=== PATIENT | female | born 1975 | race Caucasian/White ===

== ENCOUNTER 2018-08-25 11:09 | Emergency (ER) | payer MEDICAID ==
[2018-08-25 11:10] VITALS: BMI 33.1
[2018-08-25 11:20] VITALS: BP 115/80; PULSE 92; RESP 18; TEMP 97.9; O2SAT 99
--- NOTE | 2018-08-25 12:27 | RAD ---
Date of service: 08/25/2018 PROCEDURE: Radiographs of the Right Shoulder HISTORY: right shoulder injury, anterior tenderness COMPARISON: No prior. FINDINGS: BONES: No acute fracture JOINTS: Mild acromioclavicular joint degenerative change. SOFT TISSUES: Supraspinatus calcific tendonitis. OTHER FINDINGS: None. IMPRESSION: No demonstrated fracture or dislocation. Supraspinatus calcific tendonitis.
[2018-08-25] MEDS ORDERED: Lidocaine 5% Patch TD STA (12:46)
--- NOTE | 2018-08-25 13:06 | ED PDOC ---
Arrival/HPI - General Chief Complaint: Upper Extremity Problem/Injury Time Seen by Provider: 08/25/18 11:20 Historian: Patient - History of Present Illness Narrative History of Present Illness (Text): 08/25/18 22:37 43 y/o female with no significant PMH presents to the ED c/o right shoulder pain x 3 days. Patient was cleaning a closet in her home when she strained her shoulder, causing gradually worsening pain and stiffness to the right shoulder. Patient is now having difficulty moving the arm at the shoulder secondary to pain. Taking Alieve without relief. Denies numbness, paresthesias, weakness, chest pain, SOB, or any other associated symptoms. Past Medical History - Provider Review Nursing Documentation Reviewed: Yes - Cardiac Hx Cardiac Disorders: No Hx Hypertension: No - Psychiatric Hx Depression: No Hx Substance Use: No - Surgical History Hx Section: Yes - Anesthesia Hx Anesthesia: Yes Hx Anesthesia Reactions: No Family/Social History - Physician Review Nursing Documentation Reviewed: Yes Family/Social History: No Known Family HX Smoking Status: Never Smoked Hx Alcohol Use: Yes Frequency of alcohol use: Socially Hx Substance Use: No Allergies/Home Meds Allergies/Adverse Reactions: Allergies nuts Adverse Reaction (Mild, Uncoded 08/25/18 11:20) RASH Review of Systems - Physician Review All systems were reviewed & negative as marked: Yes - Review of Systems Constitutional: Normal. absent: Fevers Eyes: Normal. absent: Vision Changes ENT: Normal. absent: Sore Throat, Sinus Congestion Respiratory: Normal. absent: SOB, Cough Cardiovascular: Normal. absent: Chest Pain, Palpitations, Syncope Gastrointestinal: Normal. absent: Abdominal Pain, Nausea, Vomiting Genitourinary Female: Normal. absent: Dysuria, Frequency Musculoskeletal: Arthralgias. absent: Back Pain, Neck Pain Skin: Normal. absent: Rash, Skin Lesions Neurological: Normal. absent: Headache, Dizziness, Focal Weakness, Gait Changes, Disequilibrium Endocrine: Normal Hemo/Lymphatic: Normal Psychiatric: Normal Physical Exam Vital Signs Reviewed: Yes Vital Signs Temp Pulse Resp BP Pulse Ox 08/25/18 11:16 97.9 F 92 H 18 115/80 99 Temperature: Afebrile Blood Pressure: Normal Pulse: Regular Respiratory Rate: Normal Appearance: Positive for: Well-Appearing, Non-Toxic, Comfortable Pain Distress: None Mental Status: Positive for: Alert and Oriented X 3 - Systems Exam Head: Present: Atraumatic, Normocephalic Pupils: Present: PERRL Extroacular Muscles: Present: EOMI Conjunctiva: Present: Normal Mouth: Present: Moist Mucous Membranes Neck: Present: Normal Range of Motion Respiratory/Chest: Present: Clear to Auscultation, Good Air Exchange. No: Respiratory Distress, Accessory Muscle Use Cardiovascular: Present: Regular Rate and Rhythm, Normal S1, S2. No: Murmurs Abdomen: No: Tenderness, Distention, Peritoneal Signs Back: Present: Normal Inspection. No: CVA Tenderness, Midline Tenderness, Paraspinal Tenderness Upper Extremity: Present: Normal Inspection, NORMAL PULSES, Tenderness (anterior right shoulder; point tender over supraspinatus insertion), Neurovascularly Intact, Capillary Refill < 2s, Other (+ faith samson, + pina signs). No: Cyanosis, Edema, Normal ROM, Swelling, Erythema Lower Extremity: Present: Normal ROM, Neurovascularly Intact Neurological: Present: GCS=15, CN II-XII Intact, Speech Normal, Motor Func Grossly Intact, Normal Sensory Function, Gait Normal Skin: Present: Warm, Dry, Normal Color. No: Rashes Psychiatric: Present: Alert, Oriented x 3, Normal Insight, Normal Concentration, Normal Affect, Normal Mood Medical Decision Making ED Course and Treatment: Initial Plan: * Right Shoulder XR * Toradol * Lidoderm Patch 12:00 Patient reports mildly decreased pain after medication. Patient placed in sling prior to discharge by nursing Diagnostic testing results and plan of care discussed with patient, and strict instructions given regarding prescriptions, importance of follow up, and signs to return to Emergency Department, to include worsening pain, numbness, paresthesias, or any other new/worsening symptoms. Patient verbalizes understanding of discussion. Patient A&Ox3, ambulating with steady gait, vital signs stable for discharge home. - RAD Interpretation Narrative RAD Interpretations (Text): 08/25/18 12:49 Right Shoulder Xray: FINDINGS: BONES: No acute fracture JOINTS: Mild acromioclavicular joint degenerative change. SOFT TISSUES: Supraspinatus calcific tendonitis. OTHER FINDINGS: None. IMPRESSION: No demonstrated fracture or dislocation. Supraspinatus calcific tendonitis. Radiology Orders: 08/25/18 11:46 SHOULDER RIGHT [RAD] Stat Plane Tender: Radiologist - Medication Orders Current Medication Orders: Discontinued Medications Ketorolac Tromethamine (Toradol) 60 mg IM STAT STA Stop: 08/25/18 11:47 Last Admin: 08/25/18 11:57 Dose: 60 mg MAR Pain Assessment Document 08/25/18 11:57 [facility] (Rec: 08/25/18 11:58 [id number] Pain Reassessment Is this a pain reassessment? Yes Sleep Is patient sleeping during reassessment? No Presence of Pain Presence of Pain Yes Pain Scale Used Protocol: PSCALES Pain Scale Used Numeric Location Left, Right or Bilateral Right Pain Location Body Site Shoulder Description Description Constant IM Administration Charges Document 08/25/18 11:57 [facility] (Rec: 08/25/18 11:58 [id number] Charges for Administration # of IM Administrations 1 Disposition/Present on Arrival - Present on Arrival Any Indicators Present on Arrival: No History of DVT/PE: No History of Uncontrolled Diabetes: No Urinary Catheter: No History of Decub. Ulcer: No History Surgical Site Infection Following: None - Disposition Have Diagnosis and Disposition been Completed?: Yes Diagnosis: Calcific supraspinatus tendinitis Disposition: HOME/ ROUTINE Disposition Time: 12:30 Patient Plan: Discharge Condition: IMPROVED Discharge Instructions (ExitCare): Calcific Tendonitis of the Shoulder (DC) Additional Instructions: Take naproxen daily as needed for pain, with food Take flexeril every 8 hours as needed for pain, do not drive or use heavy machinery after taking medicine Use lidoderm patch daily 12 hours on, 12 hours off Followup with orthopedics within 2 days Followup with primary doctor within 2 days Return to ER with any new/worsening symptoms Prescriptions: Cyclobenzaprine [Flexeril] 5 mg PO Q8H PRN #12 tab PRN Reason: Pain, Moderate (4-7) Lidocaine 5% [Lidoderm] 1 ea TD DAILY PRN #30 patch PRN Reason: Pain, Mild (1-3) Naproxen [Naprosyn] 500 mg PO DAILY PRN #14 tablet PRN Reason: Pain, Moderate (4-7) Referrals: Daniel Ramos DO [Staff Provider] - Follow up with primary Charlotte Reid MD [Medical Doctor] - Follow up with primary [facility] [place] [Outside] - Follow up with primary [facility] [place] [Outside] - Follow up with primary Forms: [employer] (Serbian)
== END 2018-08-25 13:06 | disposition home or self-care (01) ==
LOC: ED 11:09
DX: M75.31 Calcific tendinitis of right shoulder (principal)
CPT/HCPCS: 73030; 96372; 99284; J1885

== ENCOUNTER 2018-08-25 22:19 | Emergency (ER) | payer MEDICAID ==
[2018-08-25] MEDS ORDERED: Meloxicam 7.5 MG TAB PO STA (23:11)
[2018-08-25 23:13] VITALS: BP 121/70; PULSE 96; RESP 18; TEMP 98.3; O2SAT 100
--- NOTE | 2018-08-25 23:50 | ED PDOC ---
Arrival/HPI <Vignesh Machado - Last Filed: 08/26/18 00:48> - History of Present Illness Narrative History of Present Illness (Text): 08/25/18 23:48 43 y/o female with no significant PMH presents to the ED c/o right shoulder pain x 3 days. Patient was cleaning a closet in her home when she strained her shoulder, causing gradually worsening pain and stiffness to the right shoulder. Patient is now having difficulty moving the arm at the shoulder secondary to pain. Denies numbness, paresthesias, weakness, chest pain, SOB, or any other associated symptoms. Pt returned after her d/c from [facility] ED a few hours ago because she got nervous about a muscle spasm. She called the ambulance and was brought in by paramedics Time/Duration: 1 hour Symptom Onset: Sudden Symptom Course: Unchanged Quality: Aching <Donny Friedman - Last Filed: 08/26/18 00:56> - General Chief Complaint: Medical Clearance Time Seen by Provider: 08/25/18 22:44 Past Medical History - Provider Review Nursing Documentation Reviewed: Yes - Cardiac Hx Cardiac Disorders: No Hx Hypertension: No - Psychiatric Hx Depression: No Hx Substance Use: No - Surgical History Hx Section: Yes - Anesthesia Hx Anesthesia: Yes Hx Anesthesia Reactions: No <Donny Friedman - Last Filed: 08/26/18 00:56> Family/Social History - Physician Review Nursing Documentation Reviewed: Yes Family/Social History: Unknown Family HX Smoking Status: Never Smoked Hx Alcohol Use: Yes Hx Substance Use: No <Donny Friedman - Last Filed: 08/26/18 00:56> Allergies/Home Meds <Vignesh Machado - Last Filed: 08/26/18 00:48> <Donny Friedman - Last Filed: 08/26/18 00:56> Allergies/Adverse Reactions: Allergies nuts Adverse Reaction (Mild, Uncoded 08/25/18 11:20) RASH Physical Exam Vital Signs Temp Pulse Resp BP Pulse Ox 08/25/18 23:12 98.3 F 96 H 18 121/70 100 <Vignesh Machado - Last Filed: 08/26/18 00:48> - Physical Exam Narrative Physical Exam (Text): 08/25/18 23:50 - Review of Systems Constitutional: Normal. absent: Fevers Eyes: Normal. absent: Vision Changes ENT: Normal. absent: Sore Throat, Sinus Congestion Respiratory: Normal. absent: SOB, Cough Cardiovascular: Normal. absent: Chest Pain, Palpitations, Syncope Gastrointestinal: Normal. absent: Abdominal Pain, Nausea, Vomiting Genitourinary Female: Normal. absent: Dysuria, Frequency Musculoskeletal: Arthralgias. absent: Back Pain, Neck Pain Skin: Normal. absent: Rash, Skin Lesions Neurological: Normal. absent: Headache, Dizziness, Focal Weakness, Gait Changes, Disequilibrium Endocrine: Normal Hemo/Lymphatic: Normal Psychiatric: Normal 08/25/18 23:51 Physical Exam Head: Present: Atraumatic, Normocephalic Pupils: Present: PERRL Extroacular Muscles: Present: EOMI Conjunctiva: Present: Normal Mouth: Present: Moist Mucous Membranes Neck: Present: Normal Range of Motion Respiratory/Chest: Present: Clear to Auscultation, Good Air Exchange. No: Respiratory Distress, Accessory Muscle Use Cardiovascular: Present: Regular Rate and Rhythm, Normal S1, S2. No: Murmurs Abdomen: No: Tenderness, Distention, Peritoneal Signs Back: Present: Normal Inspection. No: CVA Tenderness, Midline Tenderness, Paraspinal Tenderness Upper Extremity: Present: Normal Inspection, NORMAL PULSES, Tenderness (anterior right shoulder; point tender over supraspinatus insertion), Neurovascularly Intact, Capillary Refill < 2s, Other (+ faith samson, + pina signs). No: Cyanosis, Edema, Normal ROM, Swelling, Erythema Lower Extremity: Present: Normal ROM, Neurovascularly Intact Neurological: Present: GCS=15, CN II-XII Intact, Speech Normal, Motor Func Grossly Intact, Normal Sensory Function, Gait Normal Skin: Present: Warm, Dry, Normal Color. No: Rashes Psychiatric: Present: Alert, Oriented x 3, Normal Insight, Normal Concentration, Normal Affect, Normal Mood Vital Signs Temp Pulse Resp BP Pulse Ox 08/25/18 23:12 98.3 F 96 H 18 121/70 100 Temperature: Afebrile Blood Pressure: Normal Pulse: Regular Respiratory Rate: Normal Appearance: Positive for: Well-Appearing Pain Distress: Moderate Mental Status: Positive for: Alert and Oriented X 3 <Donny Friedman - Last Filed: 08/26/18 00:56> Medical Decision Making ED Course and Treatment: Impression: Pt seen and evaluated with nuclear medical tech. Aware and agree with HPI, clinical findings, plan, and management. Pt, with no significant past medical history, presented for right shoulder pain. Plan: -- Mobic -- Reassess and disposition - Medication Orders Current Medication Orders: Discontinued Medications Meloxicam (Mobic) 7.5 mg PO STAT STA Stop: 08/25/18 23:12 Last Admin: 08/25/18 23:45 Dose: 7.5 mg MAR Pain Assessment Document 08/25/18 23:45 [facility] (Rec: 08/25/18 23:48 [id number]) Pain Reassessment Is this a pain reassessment? Yes Presence of Pain Presence of Pain Yes Location Pain Location Body Site Shoulder Description Description Constant <Vignesh Machado - Last Filed: 08/26/18 00:48> ED Course and Treatment: 08/25/18 23:51 #Calcific Supraspinatus Tendinosis -STAT mobic 7.5 PO - Medication Orders Current Medication Orders: Discontinued Medications Meloxicam (Mobic) 7.5 mg PO STAT STA Stop: 08/25/18 23:12 Last Admin: 08/25/18 23:45 Dose: 7.5 mg MAR Pain Assessment Document 08/25/18 23:45 RG (Rec: 08/25/18 23:48 [id number]) Pain Reassessment Is this a pain reassessment? Yes Presence of Pain Presence of Pain Yes Location Pain Location Body Site Shoulder Description Description Constant <Donny Friedman - Last Filed: 08/26/18 00:56> - PA / [employer] MANAGER / Resident Statement [place] has reviewed & agrees with the documentation as recorded. [place] has examined the patient and agrees with the treatment plan. <Vignesh Machado - Last Filed: 08/26/18 00:48> Disposition/Present on Arrival <Vignesh Machado - Last Filed: 08/26/18 00:48> - Present on Arrival Any Indicators Present on Arrival: No History of DVT/PE: No History of Uncontrolled Diabetes: No Urinary Catheter: No History of Decub. Ulcer: No History Surgical Site Infection Following: None - Disposition Have Diagnosis and Disposition been Completed?: Yes Disposition Time: 00:38 Patient Plan: Discharge <Donny Friedman - Last Filed: 08/26/18 00:56> - Disposition Diagnosis: Supraspinatus tendinitis Disposition: HOME/ ROUTINE Patient Problems: Current Active Problems Problem Status Onset Supraspinatus tendinitis Acute Condition: GOOD Additional Instructions: TRANG SALAZAR, thank you for letting us take care of you today. Your provider was Vignesh Machado MD and you were treated for MUSCLE SPASMS. The emergency medical care you received today was directed at your acute symptoms. If you were prescribed any medication, please fill it and take as directed. It may take several days for your symptoms to resolve. Return to the Emergency Department if your symptoms worsen, do not improve, or if you have any other problems. Please contact your doctor or call one of the physicians/clinics you have been referred to that are listed on the Patient Visit Information form that is included in your discharge packet. Bring any paperwork you were given at discharge with you along with any medications you are taking to your follow up visit. Our treatment cannot replace ongoing medical care by a primary care provider outside of the emergency department. Thank you for allowing the [facility] team to be part of your care today. If you had an X-Ray or CT scan: A Radiologist will review the ED reading if any change in treatment is needed we will contact you. If you had a blood, urine, or wound culture: It will take several days for the results, if any change in treatment is needed we will contact you. If you had an STI test: It will take 48 hours for the results. Please call after 1 week if you have not heard back. PLEASE DO NOT TAKE CYCLOBENZPRINE WITH YOUR ULTRAM. STOP TAKING THE CYCLOBENZAPRINE IMMEDIATLEY Prescriptions: Tramadol HCl [Ultram] 50 mg PO Q6 PRN #16 tab PRN Reason: Pain, Moderate (4-7) Diclofenac Sodium [Voltaren] 100 gm TP Q12 #1 tube Referrals: Lu Higuera MD [Primary Care Provider] - Follow up with primary Daniel Ramos DO [Staff Provider] - Follow up with primary Gilmer Mackay MD [Staff Provider] - Follow up with primary Forms: [email or web address] (British)
== END 2018-08-26 00:57 | disposition home or self-care (01) ==
LOC: ED 22:19
DX: M75.91 Shoulder lesion, unspecified, right shoulder (principal)